=== PATIENT | male | born 1955 | race Caucasian/White ===

== ENCOUNTER → 2017-08-01 | Outpatient (CLI) | payer OTHER | END | disposition home or self-care (01) | LOC: KCIC CT 08:50 | DX: J44.9 Chronic obstructive pulmonary disease, unspecified (principal); I25.10 Atherosclerotic heart disease of native coronary artery without angina pectoris; I35.0 Nonrheumatic aortic (valve) stenosis; N62 Hypertrophy of breast; R91.1 Solitary pulmonary nodule; Z87.891 Personal history of nicotine dependence | CPT/HCPCS: 71250 ==

== ENCOUNTER 2021-04-06 18:11 | Inpatient (IN) | payer MEDICARE ==
[2021-04-05 23:15] VITALS: BP 152/74
[~2021-04-06] VITALS: Ht 172.7 cm; Wt 92.0 kg
[~2021-04-06 18:11] MED LIST: AMLO-186 PO; FOLI1TAB16 PO; HYDR12.575 PO; OMEG300C PO; SERT100T PO
[2021-04-06 18:37] VITALS: BP 153/84
--- NOTE | 2021-04-06 18:56 | HP ---
DATE OF SERVICE: 04/06/2021 ADMIT DATE: 04/06/2021 CHIEF COMPLAINT: Irregular heartbeat. HISTORY OF PRESENT ILLNESS: The patient is a 66-year-old white male who was seen in the office on the day of admission for palpitations over the last 2 months and episodes of chest pain. Laboratory studies done at the last office visit were unremarkable except for mildly elevated TSH and EKG at that time showed normal sinus rhythm. He was referred to Cardiology, but no appointment was ever made for him. In the office today, he was found to be in atrial fibrillation with a moderately fast atrial or ventricular response and admitted for further evaluation. He has never had any cardiac problems in the past to his knowledge. PAST MEDICAL HISTORY: Does have a history of COPD, hypertension and mild hypothyroidism. MEDICATIONS: He is taking thyroid replacement, low dose, as well as blood pressure medications and statin. ALLERGIES: He has no known allergies. PAST SURGICAL HISTORY: Surgically, he has had tonsillectomy. SOCIAL HISTORY: He also has a long history of alcohol abuse, but stopped drinking in 1982 and has not had any alcohol since then. He does have a diagnosis of COPD, at least mild in degree. He quit smoking some years ago, but does vape a fair amount of time. He started smoking at age 15 until he was 55. 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 He is to my knowledge. FAMILY HISTORY: Unremarkable. REVIEW OF SYSTEMS: No other complaints. PHYSICAL EXAMINATION: ENT: All within normal limits. NECK: No thyroid enlargement, masses or nodes. LUNGS: Decreased breath sounds, no wheezing or tachypnea. CARDIOVASCULAR: Irregularly irregular beat. No overt murmurs heard. No chest wall tenderness. ABDOMEN: Benign and unremarkable. EXTREMITIES: No edema. Reasonably good pedal pulses. He has a 1-2+ clubbing of the fingernails. No edema. NEUROLOGIC: Physiologic, nonfocal. ASSESSMENT: Likely paroxysmal atrial fibrillation with episodes of atypical chest pain. Possible etiology would be COPD or even mitral valve disease, less likely ischemic heart disease. PLAN: Admit for echo, diltiazem and further evaluation. AYO DR: Doretha TID: [id number]
[2021-04-06 19:16] LABS: BASO # 0.1 x10^3/uL (0.0-0.2); BASO % 1 % (0-3); EOS # 0.1 x10^3/uL (0.0-0.7); EOS % 1 % (0-3); HEMATOCRIT 43.7 % (39.0-53.0); HEMOGLOBIN 14.6 g/dL (13.0-17.5); LYMPH # 2.1 x10^3/uL (1.0-4.8); LYMPH % 21 % (24-48); MEAN CORPUSCULAR HEMOGLOBIN 30 pg (25-35); MEAN CORPUSCULAR HGB CONC 33 g/dL (31-37); MEAN CORPUSCULAR VOLUME 91 fL (79-100); MONO # 1.1 x10^3/uL (0.0-1.1); MONO % 12 % (0-9); NEUT # 6.5 x10^3/uL (1.8-7.7); NEUT % 66 % (31-73); PLATELET COUNT 273 x10^3/uL (140-400); RED BLOOD COUNT 4.81 x10^6/uL (4.30-5.70); RED CELL DISTRIBUTION WIDTH 13.1 % (11.5-14.5); WHITE BLOOD COUNT 9.8 x10^3/uL (4.0-11.0)
[2021-04-06 19:38] LABS: ALBUMIN 3.8 g/dL (3.4-5.0); ALBUMIN/GLOBULIN RATIO 1.2 (1.0-1.7); CALCIUM 9.5 mg/dL (8.5-10.1); CREATININE 1.2 mg/dL (0.7-1.3); GFR 60.4; TOTAL BILIRUBIN 0.4 mg/dL (0.2-1.0); TOTAL PROTEIN 6.9 g/dL (6.4-8.2)
[2021-04-06 20:19] LABS: BILIRUBIN,URINE NEGATIVE (NEG); CLARITY,URINE CLEAR; COLOR,URINE YELLOW; NITRITE,URINE NEGATIVE (NEG); PH,URINE 5.5 (<5.0-8.0); PROTEIN,URINE NEGATIVE (NEG-TRACE); UROBILINOGEN,URINE 0.2 mg/dL (0.2 mg/dL)
[2021-04-06] MEDS: RIVAROXABAN 10 MG TABLET. PO SCH (20:20)
[2021-04-06 20:25] LABS: BACTERIA,URINE FEW /HPF (0-FEW); RBC,URINE 0 /HPF (0-2); WBC,URINE OCC /HPF (0-4)
[2021-04-06] MEDS ORDERED: LEVO25TA4 PO (20:31)
[2021-04-06] MEDS ORDERED: HYDR12.59 PO (20:31)
[2021-04-06] MEDS ORDERED: MULT-690 PO (20:31)
[2021-04-06] MEDS ORDERED: CINN500C2 PO (20:31)
[2021-04-06] MEDS ORDERED: TURM1TAB2 PO (20:31)
[2021-04-06] MEDS ORDERED: ATOR20TA58 PO (20:31)
[2021-04-06] MEDS ORDERED: MELA10TA7 PO (20:31)
[2021-04-06] MEDS ORDERED: GARL10002 PO (20:31)
[2021-04-06] MEDS ORDERED: UBID200C7 PO (20:31)
--- NOTE | 2021-04-06 22:54 | EKG ---
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
[2021-04-06 23:14] VITALS: BP 152/74
[2021-04-07] VITALS (7 sets, daily range): BP systolic 107–149; BP diastolic 55–69
--- NOTE | 2021-04-07 03:43 | RAD ---
XR CHEST 1V 04/06/2021 7:23 PM INDICATION: Cough COMPARISON: None available TECHNIQUE: Portable frontal view of the chest is provided. FINDINGS: The cardiomediastinal silhouette is within normal limits. Lungs are clear. There are no significant pleural effusions. There is no pulmonary vascular congestion. No pneumothora x. No suspicious osseous abnormality. IMPRESSION: There is no acute cardiopulmonary process. Electronically signed by: Magda Salvador MD (04/07/2021 3:41 AM) [facility]
--- NOTE | 2021-04-07 07:51 | PDOC ---
Provider Note Date of Service: DATE: 04/07/21 TIME: 07:49 Provider Note vss, rate lower re dilt but still AF- labs ok, cxr ok, echo pending- likely etilogy is copd unless he has mitral disease- po dilt now, on xarelto, rest same Justifications for Admission Other Justification ZORAIDA BENAVIDES MD Apr 07, 2021 07:51
[2021-04-07] MEDS ORDERED: NON FORMULARY ITEM (Melatonin 10 MG) PO PRN (08:00)
[2021-04-07] MEDS ORDERED: hydroCHLOROthiazide 12.5 MG CAPSULE PO SCH (09:00)
[2021-04-07] MEDS ORDERED: LEVOTHYROXINE 25 MCG TABLET. PO SCH (10:30)
--- NOTE | 2021-04-07 12:38 | PDOC2 ---
ALDO CONWAY CRITICAL CARE CLINICAL NURSE SPECIALIST 04/07/21 1238: CARDIAC CONSULT DATE OF CONSULT Date of Consult DATE: 04/07/21 TIME: 12:34 REASON FOR CONSULT Reason for Consult: AFIB REFERRING PHYSICIAN Referring Physician: Dr. Bonilla SOURCE Source: Chart review, Patient HISTORY OF PRESENT ILLNESS HISTORY OF PRESENT ILLNESS This is a 66 yo male who presented secondary to palpitations and AFIB with RVR. Patient repots his first episode of palpitations was in early February. [place] like his heart was racing. Reports he was thirsty and took a drank a large glass of ice water and palpitations resolved. He had an outpatient referral to cardiology, but was never contacted to scheduled an appointment. Palpitations returned so he was seen by his primary care provider. Was noted in AFIB with RVR and referred to the ED for further evaluation and treatment. No history of CAD, CHF, or arrhythmias. No previous cardiac workup. He converted back to sinus rhythm and has been maintaining. Cardizem was initiated for rate control and Xarelto for stroke prophylaxis. PAST MEDICAL HISTORY Cardiovascular: HTN, Hyperlipidemia Pulmonary: COPD, Other (JOSÉ MANUEL) GI: GERD Psych: Depression Musculoskeletal: Osteoarthritis Renal/: Benign prostatic enlarg. PAST SURGICAL HISTORY Past Surgical History: Tonsillectomy FAMILY HISTORY Family History: Hypertension, Other (valvular disease ) SOCIAL HISTORY Smoke: Quit (vapes presently ) ALCOHOL: none Drugs: None Lives: Alone CURRENT MEDICATIONS CURRENT MEDICATIONS Current Medications Medications (Trade) Dose Ordered Sig/Dann Route PRN Reason Start Time Stop Time Status Last Admin Dose Admin Diltiazem HCl 125 mg/Sodium Chloride 125 ml @ 5 mls/hr CONT PRN IV PER PROTOCOL 04/06/21 18:45 04/07/21 07:49 DC 04/06/21 20:20 Rivaroxaban (Xarelto) 20 mg DAILYWSUP PO 04/06/21 21:00 04/06/21 20:20 Diltiazem HCl (Cardizem 24hr Cd) 240 mg DAILY PO 04/07/21 09:00 04/07/21 08:53 Levothyroxine Sodium (Synthroid) 25 mcg DAILY06 PO 04/07/21 10:30 04/07/21 10:02 Amlodipine Besylate (Norvasc) 5 mg DAILY08 PO 04/07/21 09:30 04/07/21 09:19 Hydrochlorothiazide (Microzide) 12.5 mg QMWF@0900 PO 04/07/21 09:00 04/07/21 09:19 ALLERGIES ALLERGIES: Coded Allergies: No Known Drug Allergies (Unverified , 04/25/14) ROS Review of System 14 point ROS conducted with pertinent positives noted above in hPI PHYSICAL EXAM General: Alert, Oriented X3, Cooperative, No acute distress HEENT: Atraumatic Lungs: Clear to auscultation Heart: Regular rate Abdomen: Soft, No tenderness Extremities: No edema, Normal pulses Skin: No significant lesion Neuro: Normal speech, Sensation intact Psych/Mental Status: Mental status NL, Mood NL MUSCULOSKELETAL: No joint tenderness VITALS/I&O VITALS/I&O: Vital Signs Date Time Temp Pulse Resp B/P (MAP) Pulse Ox O2 Delivery O2 Flow Rate FiO2 04/07/21 11:00 98.7 60 18 149/65 (93) 99 Room Air 98.7 I & O 04/06/21 04/06/21 04/07/21 15:00 23:00 07:00 Intake Total 220 ml Output Total 350 ml 550 ml Balance -350 ml -330 ml LABS Lab: Laboratory Tests Test 04/06/21 18:50 04/06/21 18:58 04/06/21 19:45 Sodium Level 142 mmol/L (136-145) Potassium Level 4.0 mmol/L (3.5-5.1) Chloride Level 103 mmol/L (98-107) Carbon Dioxide Level 29 mmol/L (21-32) Anion Gap 10 (6-14) Blood Urea Nitrogen 19 mg/dL (8-26) Creatinine 1.2 mg/dL (0.7-1.3) Estimated GFR (Cockcroft-Gault) 60.4 BUN/Creatinine Ratio 16 (6-20) Glucose Level 94 mg/dL (70-99) Calcium Level 9.5 mg/dL (8.5-10.1) Total Bilirubin 0.4 mg/dL (0.2-1.0) Aspartate Amino Transferase (AST) 21 U/L (15-37) Alanine Aminotransferase (ALT) 44 U/L (16-63) Alkaline Phosphatase 23 U/L (46-116) L Total Protein 6.9 g/dL (6.4-8.2) Albumin 3.8 g/dL (3.4-5.0) Albumin/Globulin Ratio 1.2 (1.0-1.7) SARS-CoV-2 Antigen (Rapid) Negative (NEGATIVE) White Blood Count 9.8 x10^3/uL (4.0-11.0) Red Blood Count 4.81 x10^6/uL (4.30-5.70) Hemoglobin 14.6 g/dL (13.0-17.5) Hematocrit 43.7 % (39.0-53.0) Mean Corpuscular Volume 91 fL (79-100) Mean Corpuscular Hemoglobin 30 pg (25-35) Mean Corpuscular Hemoglobin Concent 33 g/dL (31-37) Red Cell Distribution Width 13.1 % (11.5-14.5) Platelet Count 273 x10^3/uL (140-400) Neutrophils (%) (Auto) 66 % (31-73) Lymphocytes (%) (Auto) 21 % (24-48) L Monocytes (%) (Auto) 12 % (0-9) H Eosinophils (%) (Auto) 1 % (0-3) Basophils (%) (Auto) 1 % (0-3) Neutrophils # (Auto) 6.5 x10^3/uL (1.8-7.7) Lymphocytes # (Auto) 2.1 x10^3/uL (1.0-4.8) Monocytes # (Auto) 1.1 x10^3/uL (0.0-1.1) Eosinophils # (Auto) 0.1 x10^3/uL (0.0-0.7) Basophils # (Auto) 0.1 x10^3/uL (0.0-0.2) Thyroid Stimulating Hormone (TSH) 3.936 uIU/mL (0.358-3.74) H Urine Collection Type Unknown Urine Color Yellow Urine Clarity Clear Urine pH 5.5 (<5.0-8.0) Urine Specific [place] 1.010 (1.000-1.030) Urine Protein Negative mg/dL (NEG-TRACE) Urine Glucose (UA) Negative mg/dL (NEG) Urine Ketones (Stick) Negative mg/dL (NEG) Urine Blood Negative (NEG) Urine Nitrite Negative (NEG) Urine Bilirubin Negative (NEG) Urine Urobilinogen Dipstick 0.2 mg/dL (0.2 mg/dL) Urine Leukocyte Esterase Negative (NEG) Urine RBC 0 /HPF (0-2) Urine WBC Occ /HPF (0-4) Urine Squamous Epithelial Cells Occ /LPF Urine Bacteria Few /HPF (0-FEW) Laboratory Tests 04/06/21 18:58 Laboratory Tests 04/06/21 18:50 ASSESSMENT/PLAN ASSESSMENT/PLAN 1. New onset AFIB with RVR 2. Hypertension; controlled 3. Hyperlipidemia 4. COPD with h/o tobaccoism. presently vapes 5. Probable JOSÉ MANUEL 6. Hypothyroidism; as per IM Recommendations Continue Cardizem for rate control Discontinue amlodipine as patient is on Cardizem Xarelto for stroke prophylaxis Echo pending Lipids Outpatient event monitor as arranged Outpatient sleep study Follow up in our office with Dr. Garg as scheduled. RICK GARG MD 04/07/212026: CARDIAC CONSULT ASSESSMENT/PLAN ASSESSMENT/PLAN Patient seen and examined. Agree with CARBON PASTE MIXER OPERATOR's assessment and plan. New onset AF presently back in SR 2D echo showed normal LVF Continue xarelto for stroke prophylaxis and plan for event monitor as outpatient to assess AF burden Thank you for your consultation ALDO CONWAY APRN Apr 07, 2021 12:38 RICK GARG MD Apr 07, 2021 20:27
--- NOTE | 2021-04-07 14:51 | NUR ---
SS following for discharge planning. SS reviewed pt chart and discussed with pt RN. Pt is from home and is currently on room air. COVID19 negative. Cardiology consulted. SS will continue to follow for discharge planning.
[2021-04-07] MEDS: RIVAROXABAN 10 MG TABLET. PO SCH (16:22)
--- NOTE | 2021-04-07 16:28 | CARD ---
MR#: [id number] Date of Study: 04/07/2021 Ordering Physician: ZORAIDA BENAVIDES, Referring Physician: ZORAIDA BENAVIDES Tech: Enid Tran LUAN APPROVED REPORT EXAM: Two-dimensional and M-mode echocardiogram with Doppler and color Doppler. Other Information Quality : AverageHR: 62bpm Rhythm : Atrial Fibrillation INDICATION Atrial Fibrillation RISK FACTORS Hypertension Hyperlipidemia 2D DIMENSIONS RVDd3.4 (2.9-3.5cm)Left Atrium(2D)3.9 (1.6-4.0cm) IVSd1.0 (0.7-1.1cm)Aortic Root(2D)2.8 (2.0-3.7cm) LVDd3.7 (3.9-5.9cm)LVOT Diameter2.0 (1.8-2.4cm) PWd1.1 (0.7-1.1cm)LVDs2.3 (2.5-4.0cm) FS (%) 38.5 %SV40.8 ml LVEF(%)69.6 (>50%) Aortic Valve AoV Peak Ravi.138.6cm/sAoV VTI34.0cm AO Peak GR.7.7mmHgLVOT Peak Ravi.115.7cm/s AO Mean GR.4mmHgAVA (VMAX)2.59cm2 Mitral Valve MV E Nmuvcbbs541.9cm/sMV DECEL [id number] MV A Iimcpqzs58.6cm/sE/A Ratio2.4 Pulmonary Valve PV Peak Rrnngend35.9cm/s Tricuspid Valve TR P. Edzkbxhi890bc/sTR Peak Gr.30mmHg LEFT VENTRICLE The left ventricle is normal size. There is normal left ventricular wall thickness. The left ventricu lar systolic function is normal. Estimated ejection fraction 65%. There is normal LV segmental wall motion. Tissue Doppler imaging reveals moderate left ventricular diastolic dysfunction. RIGHT VENTRICLE The right ventricle is normal size. There is normal right ventricular wall thickness. The right ventr icular systolic function is normal. ATRIA The left atrium size is normal. The right atrium size is normal. The interatrial septum is intact wit h no evidence for an atrial septal defect or patent foramen ovale as noted on 2-D or Doppler imaging. AORTIC VALVE The aortic valve is calcified but opens well. Doppler and Color Flow revealed no significant aortic r egurgitation. There is no significant aortic valvular stenosis. MITRAL VALVE The mitral valve is normal in structure and function. The anterior mitral valve leaflet appears thick ened, but open well. There is no evidence of mitral valve prolapse. There is no mitral valve stenosis . Doppler and Color-flow revealed mild mitral regurgitation. TRICUSPID VALVE The tricuspid valve is normal in structure and function. Doppler and Color Flow revealed no tricuspid valve regurgitation noted. There is no tricuspid valve stenosis. PULMONIC VALVE The pulmonary valve is normal in structure and function. Doppler and Color Flow revealed no pulmonic valvular regurgitation. GREAT VESSELS The aortic root is normal in size. The ascending aorta is normal in size. The IVC is normal in size a nd collapses >50% with inspiration. PERICARDIAL EFFUSION There is no evidence of significant pericardial effusion. Critical Notification Critical Value: No <Conclusion> The left ventricular systolic function is normal. Estimated ejection fraction 65%. There is normal LV segmental wall motion. Mild mitral regurgitation. There is no evidence of significant pericardial effusion. Signed by : Jeremie Garg, Electronically Approved : 04/07/2021 16:27:24
[2021-04-07] MEDS ORDERED: RIVA20TA2 PO (18:21)
[2021-04-07] MEDS ORDERED: DILT240C33 PO (18:21)
--- NOTE | 2021-04-07 20:39 | DS ---
DATE OF DISCHARGE: 04/07/2021 HOSPITAL SUMMARY: The patient was admitted from the office with atrial fibrillation, somewhat rapid ventricular response, has been paroxysmal over the last few weeks. Aside from irregular heart rates, physical exam was unremarkable. TSH, CBC and chemistry profile were all within normal limits. Lipid profile is pending at this time, but outpatient lipid otherwise has been fine. Echocardiogram is pending at this time, but initial report showed no evidence of mitral valve stenosis or significant reduction in ejection fraction. He converted to sinus rhythm on the morning of the discharge day, tolerating meds and was comfortable to be followed as an outpatient at that point. FINAL DIAGNOSES: 1. Atrial fibrillation with rapid ventricular response, likely paroxysmal in nature. 2. Chronic obstructive pulmonary disease. OPERATIONS, PROCEDURES, COMPLICATIONS: None. CONSULTATION: Dr. Escalante's group. DISPOSITION: Diltiazem 180 mg daily and Xarelto 20 mg daily are his meds and he will follow up with our office in 1 week for echo report. Rest of home meds remain the same and he is free to return to the hospital at any time should there be any further problems. HARJIT DR: Doretha TID: [id number]
[2021-04-07] MEDS ORDERED: ATORVASTATIN CALCIUM 20 MG TABLET PO SCH (21:00)
== END 2021-04-07 18:45 | disposition home or self-care (01) | DRG 310 ==
LOC: 6 SOUTH 18:11
PROVIDERS: ADMIT Family Medicine; ATTEND Family Medicine
DX: I48.0 Paroxysmal atrial fibrillation (principal); J44.9 Chronic obstructive pulmonary disease, unspecified; Z82.49 Family history of ischemic heart disease and other diseases of the circulatory system; Z87.891 Personal history of nicotine dependence; I10 Essential (primary) hypertension; G47.33 Obstructive sleep apnea (adult) (pediatric); E78.5 Hyperlipidemia, unspecified; E03.9 Hypothyroidism, unspecified; F10.10 Alcohol abuse, uncomplicated; F32.A Depression, unspecified; K21.9 Gastro-esophageal reflux disease without esophagitis; M19.90 Unspecified osteoarthritis, unspecified site; Z20.822 Contact with and (suspected) exposure to COVID-19; Z79.899 Other long term (current) drug therapy
CPT/HCPCS: 71045; 80053; 81001; 84443; 85025; 87426; 93005; 93306; J3490; U0003; U0005; G0378

== ENCOUNTER → 2021-06-21 | Outpatient (CLI) | payer MEDICARE ==
[2021-04-07 15:00] VITALS: BP 137/61
[~2021-06-21] MED LIST changes: +ATOR20TA58 PO; +CINN500C2 PO; +DILT240C33 PO; +GARL10002 PO; +HYDR12.59 PO; +LEVO25TA4 PO; +MELA10TA7 PO; +MULT-690 PO; +REGADENOSON 0.4 MG/5 ML DISP.SYRIN. IV ONE; +RIVA20TA2 PO; +TURM1TAB2 PO; +UBID200C7 PO
--- NOTE | 2021-06-21 17:51 | RAD ---
MR#: [id number] Date of Study: 06/21/2021 Ordering Physician: RICK GREEN, Referring Physician: SINDHU ISLAS Tech: RT Uma Archer) (N) APPROVED REPORT Test Type: Pharmacological Stress Nurse/Tech: Joslyn Flores RN Test Indications: A-fib,chest pain Cardiac History: Hypertension,smoker Medications: See Electronic Medical Record Medical History: See Electronic Medical Record Resting ECG: a-fib,SB,SR Resting Heart Rate: 58 bpm Resting Blood Pressure: 132/54mmHg Pretest Chest Pain: No chest pain Nurse/Tech Notes Irregular and lungs diminished in the bases. Consent: The procedure was explained to the patient in lay terms. Informed consent was witnessed. Freddie eout was entered into [employer]. History and Stress Test performed by RT Uma Archer) (N) Pharm. Details Pharmacologic stress testing was performed using 0.4mg per 5ml of regadenoson given intravenously ove r 7-10 seconds. Stress Symptoms No chest pain or symptoms. POST EXERCISE Reason for Termination: Infusion complete Target HR: No Max HR: 82 bpm 63% of Maximum Predicted HR: 130 bpm Max Blood Pressure: 132/45mmHg Blood Pressure response to exercise: Normal blood pressure response during stress. Heart Rate response to exercise: WNL Chest Pain: No. Arrhythmia: No. ST Change: No. INTERPRETATION Stress EKG Conclusion: The resting EKG shows a sinus arrhythmia with nonspecific ST segment changes. The stress EKG shows no significant changes from baseline. Abnormal EKG but no EKG evidence of stress-induced ischemia. Imaging Protocol IMAGE PROTOCOL: Rest Tc-99m/stress Tc-99m 1 day Rest: Stress: Viability: Radiopharm.Tc99m JqauusnleDq71j Sestamibi Wcbr5bZv 31mCi Duration 15min. 15min. Img Date 06/21/2021 06/21/2021 Inj-Img Bbxi37lxp. 60min. Rest Admin Site:IV - Left AntecubitalAdministrator:RT Chelly ArcherR)(N) Stress Admin Site: IV - Left AntecubitalAdministrator: Jannet Ramirez, RT (R)(N) STRESS DATA End Diast. Vol.74.0mlAv. Heart Rate86.0bpm End Syst. Vol.16.0mlCO Index BSA4.9L/min Myocardial Dfrd086.0gEject. Ktvtdewt77.0% Stress Rates Pk. Fill Rate4.04EDV/secLVtime Pk. Fill 199.20msec Pk. Empty Rate5.64ESV/secLVtime Pk. Eject99.27msec 06/07 Pk. Fill1.63EDV/sec Stress Scores Regional WT1.00Summed WT8.00 Regional WM0.00Summed WM0.00 LV Perfusion The stress scans show an inferior wall defect. The rest scans show an inferior wall defect. Nuclear imaging shows a fixed inferior wall defect slightly larger on stress imaging. This is most c onsistent with a prior infarct. No other areas of abnormality are present on the study. Wall Motion Left ventricular ejection fraction is greater than 70% with a slight inferior wall motion abnormality . LV Perf. Quant 17 Seg. SSS6.00 17 Seg. SRS7.00 17 Seg. SDS2.00 Stress Defect Extent (% LAD)0.00Rest Defect Extent (% LAD)15.60Rev. Defect Extent (% LAD)0.00 Stress Defect Extent (% LCX) 22.50Rest Defect Extent (% LCX)0.00Rev. Defect Extent (% LCX)22.50 Stress Defect Extent (% RCA)16.70Rest Defect Extent (% RCA)27.80Rev. Defect Extent (% RCA)0.00 Stress Defect Extent (% GOLDY)11.10Rest Defect Extent (% GOLDY)13.90Rev. Defect Extent (% GOLDY)7.80 Conclusion 1. Mildly abnormal EKG but no EKG evidence of stress-induced ischemia. 2. Fixed inferior wall defect on nuclear imaging. 3. No other areas of abnormality on nuclear imaging. 4. LV ejection fraction of greater than 70% with a slight inferior wall motion abnormality. 5. 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 Signed by : Leonard Escalante MD Electronically Approved : 06/21/2021 17:51:27
== END ==
LOC: NM 09:48
PROVIDERS: ATTEND Internal Medicine Cardiovascular Disease
DX: R94.31 Abnormal electrocardiogram [ECG] [EKG] (principal); R07.9 Chest pain, unspecified
CPT/HCPCS: 78452; 93017; A9500; J2785